=== PATIENT | female | born 1965 | race Hispanic/Latino ===

== ENCOUNTER 2020-04-02 17:20 | Emergency (ER) | payer BC ==
[~2020-04-02] VITALS: Ht 152.4 cm; Wt 79.0 kg
[~2020-04-02 17:20] MED LIST: AMOXICILLIN500 MG PO; ATORVASTATIN CA20 MG PO; DOXYCYCLINE HYC20 MG PO; FLEXERIL10 MG OR; IRON325 MG OR; IRON325 MG PO; LOMOTIL2.5 MG PO; LORTAB 7.5 PO; LORTAB 7.57.5 MG PO; MAALOX PO; NO HOME MEDS; TORADOL OR; [UNRECOGNIZED DRUG - OTHER] TOP
[2020-04-02 18:42] LABS: HEMATOCRIT 37.8 % (37.0-47.0); HEMOGLOBIN 11.8 g/dl (12.0-16.0); IMMATURE GRANULOCYTES 0.3 % (0.0-5.0); MEAN CELL VOLUME 96.2 fL CALC (80.0-100.0); MEAN CORPUSCULAR HGB CONC 31.2 g/dL CAL (32.0-36.0); NEUT# 6.79 thou/uL (2.00-7.15); RED BLOOD COUNT 3.93 mill/uL (4.20-5.60); RED CELL DISTRI WIDTH 12.5 % (11.5-15.5)
[2020-04-02 19:01] LABS: ALBUMIN 4.2 g/dL (3.2-5.0); ALKALINE PHOSPHATASE 80 u/l (38-126); AMYLASE 117 u/l (30-110); ANION GAP 11 (6-22 (CALC)); BILIRUBIN, TOTAL 0.5 mg/dL (0.0-1.4); BUN 16 mg/dL (7-17); BUN/CREATININE RATIO 27 (12-20 (CALC)); CARBON DIOXIDE 22 mmol/l (22-30); CHLORIDE 108 mmol/l (95-108); CREATININE 0.6 mg/dL (0.5-1.0); GFR > 60 ML/MIN (>=60 (CALC)); GFR FOR AFR.AMER. > 60 ML/MIN (>=60 (CALC)); POTASSIUM 3.9 mmol/l (3.5-5.1); SGOT/AST 26 u/l (14-36); SODIUM 137 mmol/l (137-146); TOTAL PROTEIN 7.4 g/dL (6.3-8.2)
[2020-04-02 19:07] LABS: URINE BILIRUBIN - DIPSTICK NEGATIVE (NEGATIVE); URINE BLOOD DIPSTICK TRACE-INTACT (NEGATIVE); URINE COLOR YELLOW; URINE GLUCOSE - DIPSTICK NEGATIVE (NEGATIVE); URINE KETONE 15 mg/dL (NEGATIVE); URINE LEUK ESTERASE NEGATIVE (NEGATIVE); URINE NITRITE - DIPSTICK NEGATIVE (Negative); URINE PH 5.5 (4.5-8.0); URINE PROTEIN - DIPSTICK NEGATIVE (NEG-TRACE); URINE SPECIFIC GRAVITY >=1.030; URINE UROBILINOGEN - DIPSTICK 0.2 E.U./dL (0.2)
[2020-04-02 19:13] LABS: MYOGLOBIN 51 ng/mL (0 - 62)
[2020-04-02 21:05] VITALS: BP 114/58
== END 2020-04-02 21:27 | disposition home or self-care (01) | DRG 392 ==
LOC: ED 17:20
PROVIDERS: Emergency Medicine
DX: R11.2 Nausea with vomiting, unspecified (principal); R19.7 Diarrhea, unspecified; Z20.828 Contact with and (suspected) exposure to other viral communicable diseases

== ENCOUNTER 2020-12-16 08:45 | Emergency (ER) | payer BC ==
[~2020-12-16] VITALS: Ht 152.4 cm; Wt 68.2 kg
[2020-12-16] MEDS ORDERED: ZPAK PO ×2 (09:38→13:13)
[2020-12-16] MEDS ORDERED: TORADOL PO (13:13)
[2020-12-16] MEDS ORDERED: ZOFRAN4 MG/TAB PO (13:13)
[2020-12-16 13:26] VITALS: BP 96/54
== END 2020-12-16 13:36 | disposition home or self-care (01) | DRG 195 ==
LOC: ED 08:45
DX: J18.9 Pneumonia, unspecified organism (principal); Z20.822 Contact with and (suspected) exposure to COVID-19

== ENCOUNTER 2021-03-13 17:55 | Emergency (ER) | payer SELFPAY ==
[~2021-03-13] VITALS: Ht 152.4 cm; Wt 75.0 kg
[~2021-03-13 17:55] MED LIST changes: +TORADOL PO; +ZOFRAN4 MG/TAB PO; +ZPAK PO
[2021-03-13 18:02] VITALS: BP 154/88
[2021-03-13 18:42] LABS: URINE BILIRUBIN - DIPSTICK NEGATIVE (NEGATIVE); URINE BLOOD DIPSTICK TRACE-INTACT (NEGATIVE); URINE COLOR YELLOW; URINE GLUCOSE - DIPSTICK NEGATIVE (NEGATIVE); URINE KETONE NEGATIVE (NEGATIVE); URINE PH 7.5 (4.5-8.0); URINE PROTEIN - DIPSTICK TRACE mg/dL (NEG-TRACE); URINE SPECIFIC GRAVITY 1.025; URINE UROBILINOGEN - DIPSTICK 0.2 E.U./dL (0.2)
[2021-03-13 18:44] LABS: URINE LEUK ESTERASE MODERATE (NEGATIVE); URINE NITRITE - DIPSTICK NEGATIVE (Negative)
[2021-03-13 18:53] LABS: URINE SQUAMOUS EPITHELIAL CELL MODERATE EPI/hpf (0-FEW)
[2021-03-13] MEDS ORDERED: KEFLEX500 MG PO (19:20)
== END 2021-03-13 19:40 | disposition home or self-care (01) | DRG 690 ==
LOC: ED 17:55
DX: N39.0 Urinary tract infection, site not specified (principal); J02.9 Acute pharyngitis, unspecified; R51.9 Headache, unspecified; B96.20 Unspecified Escherichia coli [E. coli] as the cause of diseases classified elsewhere; Z20.822 Contact with and (suspected) exposure to COVID-19

== ENCOUNTER 2023-05-17 10:55 | Emergency (ER) | payer SELFPAY ==
[~2023-05-17] VITALS: Ht 152.4 cm; Wt 77.1 kg
[~2023-05-17 10:55] MED LIST changes: +KEFLEX500 MG PO
[2023-05-17 11:43] VITALS: BP 145/68
[2023-05-17] MEDS ORDERED: BENZONATATE200 MG PO (12:24)
[2023-05-17] MEDS ORDERED: TORADOL PO (12:24)
[2023-05-17] MEDS ORDERED: KETOROLAC TROMETHAMINE 30 MG/ML SDV IM ONE (12:25)
== END 2023-05-17 12:42 | disposition home or self-care (01) | DRG 195 ==
LOC: ED 10:55
DX: J10.1 Influenza due to other identified influenza virus with other respiratory manifestations (principal); Z20.822 Contact with and (suspected) exposure to COVID-19

== ENCOUNTER 2023-05-19 10:59 | Emergency (ER) | payer SELFPAY ==
[2023-05-19] VITALS (12 sets, daily range): BP systolic 120–151; BP diastolic 64–88
[~2023-05-19] VITALS: Ht 152.4 cm; Wt 77.1 kg
[~2023-05-19 10:59] MED LIST changes: +BENZONATATE200 MG PO
[2023-05-19] MEDS ORDERED: DiphenhydrAMINE HCL 50 MG/ML SDV IV ONE (13:20)
[2023-05-19] MEDS ORDERED: KETOROLAC TROMETHAMINE 15 MG/ML SDV IV ONE (13:20)
[2023-05-19] MEDS ORDERED: DEXAMETHASONE SOD. PHOSPHATE 10 MG/ML VIAL IV ONE (13:20)
[2023-05-19] MEDS ORDERED: METOCLOPRAMIDE HCL 10 MG/2 ML SDV IV ONE (13:20)
[2023-05-19] MEDS ORDERED: SODIUM CHLORIDE 0.9% 1,000 ML IV SCH ×2 (13:20→15:05)
[2023-05-19 14:16] LABS: BASO% 0.3 % (0-3); HEMATOCRIT 40.1 % (37.0-47.0); IMMATURE GRANULOCYTES 0.3 % (0.0-5.0); LYMPH% 28.6 % (15-41); MEAN CELL VOLUME 93.5 fL CALC (80.0-100.0); MEAN CORPUSCULAR HGB 30.3 pG CALC (26.0-32.0); MEAN CORPUSCULAR HGB CONC 32.4 g/dL CAL (32.0-36.0); MONO% 10.5 % (2-13); NEUT# 2.13 thou/uL (2.00-7.15); NEUT% 60.3 % (42-76); RED BLOOD COUNT 4.29 mill/uL (4.20-5.60); RED CELL DISTRI WIDTH 12.5 % (11.5-15.5)
[2023-05-19 14:35] LABS: ALBUMIN 4.3 g/dL (3.2-5.0); ALKALINE PHOSPHATASE 75 u/l (38-126); ANION GAP 13 (6-22 (CALC)); BILIRUBIN, TOTAL 0.3 mg/dL (0.02-1.3); BUN 8 mg/dL (7-17); BUN/CREATININE RATIO 12 (12-20 (CALC)); CARBON DIOXIDE 22 mmol/l (22-30); CHLORIDE 106 mmol/l (95-108); CREATININE 0.7 mg/dL (0.5-1.0); GFR FOR AFR.AMER. > 60 ML/MIN (>=60 (CALC)); GFR OTHER RACES > 60 ML/MIN (>=60 (CALC)); POTASSIUM 4.2 mmol/l (3.5-5.1); SODIUM 138 mmol/l (137-146); TOTAL PROTEIN 7.7 g/dL (6.3-8.2)
[2023-05-19 14:38] LABS: SGOT/AST 62 u/l (14-36)
[2023-05-19] MEDS ORDERED: SODIUM CHLORIDE 0.9% 1,000 ML IV ONE (15:15)
[2023-05-19] MEDS ORDERED: traMADol HCL 50 MG/TAB PO ONE (16:10)
[2023-05-19 17:11] LABS: URINE BILIRUBIN - DIPSTICK Negative (NEGATIVE); URINE BLOOD DIPSTICK Small (NEGATIVE); URINE GLUCOSE - DIPSTICK Negative (NEGATIVE); URINE KETONE Negative (NEGATIVE); URINE LEUK ESTERASE Negative (NEGATIVE); URINE NITRITE - DIPSTICK Negative (Negative); URINE PH 6.5 (4.5-8.0); URINE PROTEIN - DIPSTICK Negative (NEG-TRACE); URINE UROBILINOGEN - DIPSTICK 0.2 E.U./dL (0.2)
[2023-05-19 17:12] LABS: URINE COLOR Straw
[2023-05-19 17:19] LABS: URINE RBC 0-2 RBC/hpf (0-5); URINE SQUAMOUS EPITHELIAL CELL FEW EPI/hpf (0-FEW)
== END 2023-05-19 17:58 | disposition home or self-care (01) | DRG 948 ==
LOC: ED 10:59
PROVIDERS: Emergency Medicine; Nurse Practitioner Acute Care
DX: R52 Pain, unspecified (principal); R51.9 Headache, unspecified; E78.00 Pure hypercholesterolemia, unspecified; Z20.822 Contact with and (suspected) exposure to COVID-19